=== PATIENT | male | born 1965 | race Caucasian/White ===

== ENCOUNTER 2018-01-23 08:40 | Emergency (ER) | payer OTHER, MEDICAID, SELFPAY ==
[2018-01-23 08:41] VITALS: BP 188/116; PULSE 83; RESP 16; TEMP 35.9; O2SAT 96; BMI 30.2
[2018-01-23] MEDS: Tetracaine 0.5% Ophthalmic Bottle 1 DRP RIGHT EYE (09:01)
[2018-01-23] MEDS: Fluorescein 1 MG STRIP 1 STRIP RIGHT EYE (09:02)
--- NOTE | 2018-01-23 09:40 | ED.DCSUM_ITS ---
- ER Visit Summary Date of Service: 01/23/18 Chief Complaint: [] Right eye irritation occurred while grinding cutting laminate countertop 2 days ago History of Present Illness: The patient is a 52 M [] was at work he was cutting laminate countertop he was wearing protective eye goggles ago tightly across his face he believes that something was made was on his forehead when he took the glasses off something fell on his eye he does not believe he suffered any injury while he was actually grinding, he has had this happen before he wanted to wait to see if would go away he woke this morning with persistent right eye irritation and he came in for evaluation. Indicates that for the most part his vision is within normal range, his visual acuity right eye is 20/15 to our testing he has no complaints to the left eye no other complaints Physical Examination: [] Right conjunctiva is injected there is no obvious foreign body pupils are equal reactive bilaterally anterior chambers intact tetracaine fluorescein slit lamp not available cobalt blue light used to examine the eye there was no obvious foreign body there was uptake at about 8 o' clock position just at the border of the cornea distally and conjunctival border no foreign body was appreciated no streaming of aqueous again the anterior chamber was intact pupil reacted well the globe appeared normal Acuity is 20/15 right eye he does not wear contacts after tetracaine his symptoms are completely resolved and he has no symptoms now Test Results: [] Emergency Department Course and Treatment: [] On conversation with him given his mechanism and x-ray of the orbits was obtained to rule out any signs of foreign body this is pending, I explained that this is negative he will be started on on erythromycin , and ophthalmology follow-up appointment, he understands need to follow-up, this was work-related Worker's Comp. paperwork is completed he is referred to corporate clinic, he will also be referred to ophthalmology on-call and he will return for change in symptoms he understands need to follow-up Treatment Plan: [] Disposition: [], Please note the patient left the emergency department before he could obtain the x-ray and did not wait for his discharge instructions or antibiotics I did explain all the above to him however stable home Impression: [] Corneal abrasion right eye as above This note was generated with [employer] software. It may contain incorrect words, spelling, and punctuation that were not noted in review of the chart prior to signing ED Disposition - Plan for ED Patient: Disposition: Against Medical Advice Chief Complaint: Eye Problem Instructions: Corneal Injury Referrals: [facility] [GROUP OF PHYSICIANS] - Stevie Wagner MD [STAFF PHYSICIAN] - Jeffery Chang MD [Primary Care Provider] -
--- NOTE | 2018-01-23 09:40 | ED.DEP ---
ED Disposition - Plan for ED Patient: Chief Complaint: Eye Problem Instructions: Corneal Injury Referrals: Jeffery Chang MD [Primary Care Provider] - Stevie Wagner MD [STAFF PHYSICIAN] - [facility] [GROUP OF PHYSICIANS] -
== END 2018-01-23 09:56 | disposition left against medical advice (07) ==
PROVIDERS: Emergency Provider Emergency Medicine; Family Provider Family Medicine; PCP Family Medicine
DX: S05.01XA Injury of conjunctiva and corneal abrasion without foreign body, right eye, initial encounter (principal); X58.XXXA Exposure to other specified factors, initial encounter; Y93.9 Activity, unspecified; Y92.9 Unspecified place or not applicable; Y99.9 Unspecified external cause status; Z79.899 Other long term (current) drug therapy
CPT/HCPCS: 99282

== ENCOUNTER 2021-05-02 03:42 | Day surgery (SDC) | payer SELFPAY ==
[2021-05-02] VITALS (7 sets, daily range): BP systolic 146–194; BP diastolic 89–104; PULSE 88–107; RESP 18–24; TEMP 36.4; O2SAT 93–99; BMI 29.0
--- NOTE | 2021-05-02 03:50 | CT_ITS ---
STUDY: CT SOFT TISSUE NECK WITHOUT CONTRAST REASON FOR EXAM: Male, 55 years old. FB sensation RADIATION DOSAGE (If Supplied By Facility): CTDIvol = ( 18.52 ) mGy, DLP = ( 643.16 ) mGycm TECHNIQUE: The patient was scanned in a multi-detector CT scanner. High resolution transaxial imaging was performed without the administration of intravenous contrast material. Sagittal and coronal images were reconstructed. Individualized dose optimization techniques were used for this CT. COMPARISON: None. FINDINGS: Within the esophageal lumen at the level below the hyoid bone, there appears to be soft tissue density measuring roughly 5.2 x 1.4 cm. Unsure if this is impacted food. Underlying mass cannot be excluded. Recommend clinical correlation. Otherwise, the soft tissues of the neck are within normal limits for patient''s age CT/Soft Tissue Neck without Contr IMPRESSION: Soft tissue density within the esophagus below the level of the hyoid bone as detailed above. Recommend clinical correlation for impacted food bolus. Electronically Signed: Romie Atkinson DO at 4:39 EDT Tel , Service support ,
--- NOTE | 2021-05-02 03:51 | EX.ED.DYSGE1 ---
HPI History of Present Illness Chief Complaint: Sore Throat Informant: patient Onset/Context/Timing Onset: Today Current Severity: Moderate Maximum Severity: Moderate Narrative Narrative: Patient woke this morning with foreign body sensation in his throat. He states he feels like he cannot swallow his saliva gets caught in his throat. He points to the anterior neck and describing the area of foreign body sensation. He states he felt fine when he went to bed last night. He does not recall choking on any food last evening. PFSH PFS Medical History GERD (gastroesophageal reflux disease) Home Medications NK 05/02/21 [History Last Taken Unknown] Allergy/AdvReac Type Severity Reaction Status Date / Time No Known Allergies Allergy Verified 05/02/21 03:47 Social History Smoking Status: Former smoker ROS ROS ED Constitutional Constitutional ED: Denies chills or fever(s) Eyes Eyes: Denies change in vision ENT ENT ED: Reports sore throat Cardiovascular Cardiovascular: Denies chest pain Respiratory/Chest Respiratory/Chest: Denies cough or dyspnea Gastrointestinal Gastrointestinal: Denies abdominal pain, diarrhea, nausea or vomiting Genitourinary Genitourinary ED: Denies dysuria Musculoskeletal Musculoskeletal: Denies back pain Integumentary Denies rash Neurologic Neurologic: Denies headache(s) or weakness Psychiatric Psychiatric: Denies anxiety or depression Endocrine Endocrinology: Denies polydipsia or polyuria Allergic/Immunologic Allergic/Immunologic ED: Denies urticaria EXAM Physical Exam Const Vital Signs: 05/02/21 03:43 05/02/21 03:46 Temperature 97.6 F L Temperature Source Temporal Pulse Rate 88 Respiratory Rate 24 H Blood Pressure 153/100 H Blood Pressure Mean 117 Pulse Ox 99 Oxygen Delivery Method Room Air Positive well nourished and well developed General Appearance ED: well developed HEENT Reports normocephalic, head/scalp atraumatic and moist mucous membranes HEENT Narrative: Posterior pharynx examination unremarkable. Patient speaks with a strong voice. He will occasionally spit out his secretions. Eyes PERRL and EOMs intact bilaterally Neck supple Chest Wall inspection of chest normal and palpation of chest normal Resp normal respiratory effort and clear to auscultation bilaterally Cardio regular rate and regular rhythm GI non-tender Palpation: soft Extremity normal to inspection Neuro oriented x3 and no sensory deficits noted Sensorium / Orientation: alert Motor Exam: strength 5/5 throughout Psych Mood & Affect: anxious Skin no rashes or lesions noted MDM MDM MDM Narrative Medical decision making narrative: Patient was sent for CT scan of the neck. Radiography Diagnostic Testing: Radiology Impression Soft Tissue Neck CT 05/02/21 03:50 IMPRESSION: Soft tissue density within the esophagus below the level of the hyoid bone as detailed above. Recommend clinical correlation for impacted food bolus. Electronically Signed: Romie Atkinson DO at 4:39 EDT Tel , Service support , Treatment and Re-Evaluation Comments:: CT does return with evidence of a density in the esophagus just below the level of the hyoid bone. This may represent an impacted food bolus. Patient has a Hep-Lock placed. I spoke with surgery who reviewed the images. Plan will be to take the patient down to endoscopy this morning for scope and treatment. Discharge Plan Triage Chief Complaint: Sore Throat ED Provider: Eunice Trayc Dx/Rx/DC Orders Clinical Impression: Esophageal abnormality Prescriptions: No Action NK RF: 0 Primary Care Provider: Care Physician,No Primary Referrals: Care Physician,No Primary [Primary Care Provider] - Disposition Disposition: Acute Care Hospital [facility]
--- NOTE | 2021-05-02 06:35 | CON.PCM.SX_ITS ---
Assessment & Plan Assessment/Plan (1) Esophageal abnormality: PLAN: I have discussed the above with the patient. I have offered the patient EGD, possible foreign body removal I have explained the risks/benefits of the procedure and described the procedure. I have discussed the risks with the patient, including but not limited to: infection, bleeding, perforation of the GI tract requiring emergency surgery, inability to complete the procedure, injury to any internal organs, possible need for transfer to tertiary care facility with GI if unable to remove foreign body, complications of anesthesia, etc. - the patient understands and agrees to proceed. I have answered all the patient's questions to the patient's satisfaction and the patient has no further questions. Naomi So M.D. Pager: [phone] [facility] [address] [place] [address], [facility], [address] [place] [id number] Office: [phone] HPI Consult Data Date of Consult: 05/02/21 HPI Narrative HPI Narrative: OLAYINKA IRENE, is a 55 M who presents to the ER due to difficulty swallowing/food impaction. Patient states he had filet mignon last night does not have good dentition initially did not think anything really got stuck but woke up at 2:30 AM in the morning with pain in his chest patient initially tried to swallow some water which went to his lungs. Patient denies ever having any issues like this previously. Patient had CT neck done in the ER which showed a soft tissue density in the upper esophagus. Patient states he does occasionally have to spit out his saliva. [facility] Medical History (Updated 05/02/21 @ 05:[address] Eunice Tracy MD) GERD (gastroesophageal reflux disease) Home Medications NK 05/02/21 [History Last Taken Unknown] Allergy/AdvReac Type Severity Reaction Status Date / Time No Known Allergies Allergy Verified 05/02/21 03:47 Surgical History (Updated 05/02/21 @ 06:[address] Naomi So MD) History of elbow surgery Social History Smoking Status: Former smoker ROS ENT HEENT: Reports dysphagia; Denies dizziness Cardiovascular Cardiovascular: Denies chest pain Respiratory/Chest Respiratory/Chest: Denies shortness of breath at rest Gastrointestinal Gastrointestinal: Denies abdominal pain, constipation, diarrhea, heartburn or hematemesis Genitourinary Genitourinary: Denies burning urination Integumentary Integumentary: Denies rash Neurologic Neurologic: Denies focal weakness Endocrine Endocrinology: Denies palpitations Hematologic/Lymphatic Hematologic/Lymphatic: Denies easy bleeding or easy bruising Physical Exam Const alert, oriented x3 and no apparent distress HEENT normocephalic and head/scalp atraumatic Resp normal respiratory effort Cardio regular rate GI soft to palpation and non-tender; Negative for non-distended Palpation: Negative for guarding Extremity no clubbing, cyanosis or edema Neuro CN's II-XII intact bilaterally Psych mental status grossly normal Radiology Impression Soft Tissue Neck CT 05/02/21 03:50 IMPRESSION: Soft tissue density within the esophagus below the level of the hyoid bone as detailed above. Recommend clinical correlation for impacted food bolus. Electronically Signed: Romie Atkinson DO at 4:39 EDT Tel , Service support , Procedure Criteria Type of Procedure Procedure Type: Elective Elective Risks - COVID COVID Risk Discussion: The surgeon/proceduralist and patient have discussed in detail the risk of exposure to and/or potential harm posed by the COVID-19 virus with having a surgery/procedure at this time versus the risk of delaying the surgery/procedure. It is not possible to know either the risk of delaying the surgery or procedure or chance of getting an infection with perfect accuracy, but a joint decision was made between the patient and the surgeon/proceduralist to proceed at this time with the scheduled surgery/procedure as indicated on the consent form. Charges/Coding Visit Charges Inpatient E&M: 87040 Init Hosp L2
--- NOTE | 2021-05-02 07:55 | OP.EGD_ITS ---
Patient Name: Jamaal Regalado Procedure Date: 05/02/2021 7:13 AM Date of : 1965 Age: 55 Procedure: Upper GI endoscopy Indications: Foreign body in the esophagus Providers: Naomi So MD Referring MD: Naomi So MD Medicines: Monitored Anesthesia Care Patient Profile: This is a 55 year old male. Complications: No immediate complications. Procedure: Pre-Anesthesia Assessment: - Prior to the procedure, a History and Physical was performed, and patient medications and allergies were reviewed. The patient's tolerance of previous anesthesia was also reviewed. The risks and benefits of the procedure and the sedation options and risks were discussed with the patient. All questions were answered, and informed consent was obtained. Prior Anticoagulants: The patient has taken no previous anticoagulant or antiplatelet agents. ASA Grade Assessment: Per anesthesia. After reviewing the risks and benefits, the patient was deemed in satisfactory condition to undergo the procedure. After obtaining informed consent, the endoscope was passed under direct vision. Throughout the procedure, the patient's blood pressure, pulse, and oxygen saturations were monitored continuously. The gastroscope was introduced through the mouth, and advanced to the second part of duodenum. The upper GI endoscopy was performed with difficulty due to presence of food. The patient tolerated the procedure well. Scope In: 7:23:19 AM Scope Out: 7:45:21 AM Total Procedure Duration Time 0 hours 22 minutes 2 seconds Findings: Food was found in the proximal esophagus. The endoscope was removed, and an overtube with cap was fitted. The scope and overtube were then reinserted via the mouth and advanced to the esophagus to protect the airway, to facilitate the procedure and to aid in foreign body removal using graspers. Initially only got small pieces then was able to get the large piece about 1.5 cm x 5 cm. The Z-line was variable and was found 40 cm from the incisors. The examined duodenum was normal. The stomach was normal. The cardia and gastric fundus were normal on retroflexion. Impression: - Food in the proximal esophagus--removed. - Z-line variable, 40 cm from the incisors. - Normal examined duodenum. - Normal stomach. - An overtube with cap was used to protect the airway, to facilitate the procedure and to aid in foreign body removal. - No specimens collected. Recommendation: - Discharge patient to home. - Soft diet. - Continue present medications. Procedure Code(s): --- Professional --- 51743, Esophagogastroduodenoscopy, flexible, transoral; with removal of foreign body(s) Diagnosis Code(s): --- Professional --- T18.128A, Food in esophagus causing other injury, initial encounter K22.8, Other specified diseases of esophagus T18.108A, Unspecified foreign body in esophagus causing other injury, initial encounter CPT copyright 2017 [employer]. All rights reserved. The codes documented in this report are preliminary and upon counter checker review may be revised to meet current compliance requirements. MD Naomi Burgos MD 05/02/2021 7:54:28 AM This report has been signed electronically. Number of Addenda: 0 Note Initiated On: 05/02/2021 7:13 AM
--- NOTE | 2021-05-02 07:55 | OP.CCLET_ITS ---
05/02/2021 No Primary Care Physician Re : Upper GI endoscopy procedure for Jamaal Regalado [facility] Physician This procedure was performed on Sunday, May 02, 2021. My impressions and recommendations are as follows: Impressions : - Food in the proximal esophagus--removed. - Z-line variable, 40 cm from the incisors. - Normal examined duodenum. - Normal stomach. - An overtube with cap was used to protect the airway, to facilitate the procedure and to aid in foreign body removal. - No specimens collected. Recommendations : - Discharge patient to home. - Soft diet. - Continue present medications. My findings are described in the full procedure note, which is enclosed. If I can be of further assistance, please feel free to contact me at Doctor phone number(s): , Work: . Sincerely, MD Naomi Burgos MD 05/02/2021 7:54:28 AM This report has been signed electronically.
== END 2021-05-02 08:33 | disposition home or self-care (01) ==
LOC: ED 05:54 → SDC 06:05 → ACINP 06:07 → AC 07:17
PROVIDERS: Emergency Provider Emergency Medicine; Referring Provider Surgery; Visit Provider Surgery
PROC: 0DJ08ZZ Inspection of Upper Intestinal Tract, Via Natural or Artificial Opening Endoscopic (ICD-10-PCS; CPT 43235; principal; 2021-05-02 06:55)
DX: T18.128A Food in esophagus causing other injury, initial encounter (principal); X58.XXXA Exposure to other specified factors, initial encounter; Y93.9 Activity, unspecified; Y92.9 Unspecified place or not applicable; Y99.9 Unspecified external cause status; K21.9 Gastro-esophageal reflux disease without esophagitis; Z87.891 Personal history of nicotine dependence
CPT/HCPCS: 43247; 70490; 99283; J7120; A4216; J2405

== ENCOUNTER 2022-08-20 22:39 | Emergency (ER) | payer SELFPAY ==
[2022-08-20 22:41] VITALS: BP 167/108; PULSE 107; RESP 18; TEMP 36.7; O2SAT 98; BMI 25.8
[2022-08-20 23:12] LABS: Amphetamine Urine VISTA NEGATIVE (<1000 ng/mL); Barbiturate Urine VISTA NEGATIVE (< 200 ng/mL); Benzodiazepine Urine VISTA NEGATIVE (< 200 ng/mL); Cocaine Urine VISTA NEGATIVE (< 300 ng/mL); Ecstacy Urine VISTA NEGATIVE (< 500 ng/mL); Methadone Urine VISTA NEGATIVE (< 300 ng/mL); PCP Urine VISTA NEGATIVE (< 25 ng/mL); THC Urine VISTA POSITIVE (< 50 ng/mL); Vista UDS pH Range 4
[2022-08-21 00:14] VITALS: RESP 16
--- NOTE | 2022-08-21 00:14 | ED.RN ---
per Dr. Javier no need for suicidal sitter at this time
[2022-08-21] MEDS: Amoxicillin 250 MG Capsule PO (00:35)
[2022-08-21] MEDS: AMOXICILLIN 500 MG CAPSULE PO (00:35)
[2022-08-21] MEDS: Naproxen 250 MG Tablet 500 MG PO (00:36)
--- NOTE | 2022-08-21 00:49 | EDS_ITS ---
HPI <Dr. Chuy Javier MD - Last Filed: 08/21/22 01:06> HPI - Psych History of Present Illness Chief Complaint: Suicidal Informant: patient Onset/Context/Timing Onset: Weeks (2) Context: Gradual Onset Conflict: - (dental pain) Timing: Continuous Current Severity: Moderate Maximum Severity: Severe Worsened by: Situational factors and Alcohol intoxication (possibly) Relieved by: being brought to ED Associated Symptoms Associated Symptoms - Psych: Positive for Change in Eating and Change in sleeping Specific plan (suicidal thought): use gun Narrative Narrative: Patient presents pink slipped by authorities due to calling suicidal hotline/crisis because he wanted to use a gun to take his acute on chronic dental pain away and kill himself to complete a 20-gauge extraction. He told police that this would end his pain, but also admitted that they would be pulling his teeth from the plaster in his home. He states the reason he considered killing himself was because of his dental pain. He states he has gone to several dental clinics and is out of options; the most recent one he went to told him they could get him in in October. He tells me that he has been having diffuse dental pain/problems for years. It has really flared up in the past 2 weeks, and he was hoping somebody would put him on an antibiotic. He has done that before, the last time was a year or 2 ago, and it helped temporarily. He states now that he is here and that we could do that, he does not want to kill himself, and states he does not think he would be able to do that anyway. He does have 1 gun in his home, and he states he already offered the authorities to take it from him. He does admit to drinking tonight, he has been doing that off and on to self medicate for the pain, his last drink was 3 to 4 hours prior to coming here. Other than marijuana he has used no other substances or medications recently. He states he has had trouble eating and sleeping only because of the pain in his mouth. He has been trying to force himself to stay hydrated. [facility] <Dr. Chuy Javier MD - Last Filed: 08/21/22 01:06> [facility] Medical History GERD (gastroesophageal reflux disease) Home Medications amoxicillin 500 mg tablet 500 mg PO TID #30 tabs 08/21/22 [Rx Last Taken Unknown] naproxen 500 mg tablet 500 mg PO BID PRN #14 tabs 08/21/22 [Rx Last Taken Unknown] Allergy/AdvReac Type Severity Reaction Status Date / Time No Known Allergies Allergy Verified 08/20/22 22:46 Surgical History (Updated 05/02/21 @ 06:[address] Naomi So MD) History of elbow surgery Social History Smoking Status: Former smoker ROS <Dr. Chuy Javier MD - Last Filed: 08/21/22 01:06> ROS ED Constitutional Constitutional ED: Denies chills or fever(s) Eyes Eyes: Denies change in vision or diplopia ENT ENT ED: Reports as per HPI and mouth pain; Denies rhinorrhea, sore throat or tongue swelling Cardiovascular Cardiovascular: Denies chest pain or palpitations Respiratory/Chest Respiratory/Chest: Denies cough or dyspnea Gastrointestinal Gastrointestinal: Denies abdominal pain, diarrhea, nausea or vomiting Genitourinary Genitourinary ED: Denies dysuria or hematuria Musculoskeletal Musculoskeletal: Denies back pain or neck pain Integumentary Denies abscess or rash Neurologic Neurologic: Denies headache(s), paresthesias or weakness Psychiatric Psychiatric: Reports anxiety and suicidal thoughts; Denies depression EXAM <Dr. Chuy Javier MD - Last Filed: 08/21/22 01:06> Physical Exam Const Vital Signs: 08/20/22 22:41 08/21/22 00:14 08/21/22 01:24 Temperature 98.0 F Temperature Source Temporal Pulse Rate 107 H Respiratory Rate 18 16 16 Blood Pressure 167/108 H Blood Pressure Mean 127 Pulse Ox 98 Oxygen Delivery Method Room Air Room Air Room Air 08/21/22 02:18 08/21/22 03:12 Temperature Temperature Source Pulse Rate Respiratory Rate 16 16 Blood Pressure Blood Pressure Mean Pulse Ox Oxygen Delivery Method Room Air Room Air Positive well nourished and well developed General Appearance ED: well developed and NAD HEENT Reports moist mucous membranes HEENT Narrative: Poor dentition. Several teeth missing that the patient states he self extracted at various times not recently. No gingival/dental abscess. No trismus. No tongue elevation or sublingual edema. No stridor or abnormal voice. No bleeding. No gingival hypertrophy/edema/necrosis. normocephalic and atraumatic Eyes PERRL and EOMs intact bilaterally Neck full ROM and supple Resp normal respiratory effort and clear to auscultation bilaterally Cardio regular rate, regular rhythm and no murmurs GI non-tender and non-distended Auscultation: normoactive bowel sounds Palpation: soft Back/Spine no CVA tenderness General Back: other FROM Extremity normal to inspection General Extremety ED: Negative for edema, pulses abnormal or tenderness General Extremity: Negative for edema or pulses abnormal Neuro oriented x3, CN's II-XII intact bilaterally and no sensory deficits noted Sensorium / Orientation: awake and alert Motor Exam: strength 5/5 throughout Psych thought process normal, cooperative, affect normal, speech normal, activity/motor behavior normal, denies hallucinations, denies homicidal ideation and denies suicidal ideation Attention / Concentration: attention grossly intact Memory / Cognition: memory grossly intact Insight: insight good Skin no rashes or lesions noted and no wounds <Dr. Eunice Tracy MD - Last Filed: 08/21/22 03:43> Physical Exam Const Vital Signs: 08/20/22 22:41 08/21/22 00:14 08/21/22 01:24 Temperature 98.0 F Temperature Source Temporal Pulse Rate 107 H Respiratory Rate 18 16 16 Blood Pressure 167/108 H Blood Pressure Mean 127 Pulse Ox 98 Oxygen Delivery Method Room Air Room Air Room Air 08/21/22 02:18 08/21/22 03:12 Temperature Temperature Source Pulse Rate Respiratory Rate 16 16 Blood Pressure Blood Pressure Mean Pulse Ox Oxygen Delivery Method Room Air Room Air [facility] <Dr. Chuy Javier MD - Last Filed: 08/21/22 01:06> [facility] Narrative Medical decision making narrative: Patient is denying suicidal ideation, he states he was reaching out for help because of his dental issues which are the main source of his problems. I gave him a dose of amoxicillin as well as Naprosyn, his drug screen shows THC only, awaiting alcohol. Medically, I think it would be reasonable to put him on antibiotics and refer him to dentistry, he stated to me that in the past he would take some antibiotics and within a day his pain was much better and not really all he wants. He is not looking for substances. The pink slip written by police is concerning, I am going to have crisis evaluate him, if they can formulate a safety plan for him I would be fine discharging him on antibiotics to follow-up with dentistry when he is able. Lab Data Attestation: I reviewed the patient's lab results. Labs: Laboratory Results - last 24 hr 08/20/22 08/21/22 22:58 01:08 Urine Opiates Screen NEGATIVE Urine Methadone Screen NEGATIVE Ur Barbiturates Screen NEGATIVE Ur Phencyclidine Scrn NEGATIVE Ur Amphetamines Screen NEGATIVE MDMA (Ecstasy) Screen NEGATIVE U Benzodiazepines Scrn NEGATIVE Urine Cocaine Screen NEGATIVE U Cannabinoids Screen POSITIVE H Ur Drug Screen Comment Ethyl Alcohol 88.0 <Dr. Eunice Tracy MD - Last Filed: 08/21/22 03:43> [facility] Lab Data Labs: Laboratory Results - last 24 hr 08/20/22 08/21/22 22:58 01:08 Urine Opiates Screen NEGATIVE Urine Methadone Screen NEGATIVE Ur Barbiturates Screen NEGATIVE Ur Phencyclidine Scrn NEGATIVE Ur Amphetamines Screen NEGATIVE MDMA (Ecstasy) Screen NEGATIVE U Benzodiazepines Scrn NEGATIVE Urine Cocaine Screen NEGATIVE U Cannabinoids Screen POSITIVE H Ur Drug Screen Comment Ethyl Alcohol 88.0 Treatment and Re-Evaluation Narrative: Patient signed out to me pending evaluation by crisis. Patient has been in the emergency room several hours and we are still awaiting crisis phone call. He needs to leave so he can go to work today. He states if he loses his job at all point even more stress on him. He is very adamant that he does not want hurt himself or anyone else. He states the only person that can help him is a dentist, not a psychiatrist. He is open to counseling center calling him later today to check in on him. He is given return instructions and I will clear him at this time for discharge. Discharge Plan Triage Chief Complaint: Suicidal ED Provider: Chuy Javier Dx/Rx/DC Orders Clinical Impression: Suicidal thoughts, Odontalgia, Poor dentition Instructions: CONTRACT, No Harm, ED Dental Pain Prescriptions: New amoxicillin 500 mg tablet 500 mg PO TID Qty: 30 0RF naproxen 500 mg tablet 500 mg PO BID PRN Qty: 14 0RF Primary Care Provider: Care Physician,No Primary Referrals: Care Physician,No Primary [Primary Care Provider] - Disposition Disposition: Home, Self Care
[2022-08-21 01:24] VITALS: RESP 16
--- NOTE | 2022-08-21 02:16 | ED.RN ---
crisis paged to see crisis at this time
[2022-08-21 02:18] VITALS: RESP 16
[2022-08-21 03:12] VITALS: RESP 16
[2022-08-21 03:43] VITALS: BP 136/86; PULSE 76; RESP 16; O2SAT 98
== END 2022-08-21 03:43 | disposition home or self-care (01) ==
PROVIDERS: Emergency Provider Emergency Medicine; Visit Provider Emergency Medicine
DX: R45.851 Suicidal ideations (principal); K08.89 Other specified disorders of teeth and supporting structures; K21.9 Gastro-esophageal reflux disease without esophagitis; Z87.891 Personal history of nicotine dependence
CPT/HCPCS: 36415; 80307; 82077; 99284